=== PATIENT | female | born 2000 | race Caucasian/White ===

== ENCOUNTER 2020-11-25 10:07 | Emergency (ER) | payer BC ==
--- NOTE | 2020-11-25 10:19 | EDM.PDOC ---
ED HPI GENERAL MEDICAL PROBLEM - General Stated Complaint: prior removal of galbladder lots of pain Time Seen by Provider: 11/25/20 10:19 Source of Information: Reports: Patient, RN, RN Notes Reviewed History Limitations: Reports: No Limitations - History of Present Illness INITIAL COMMENTS - FREE TEXT/NARRATIVE: Patient is a 20-year-old female who presents to ER with complaint of right upper quadrant pain. Patient states the pain began yesterday, had some pain throughout the night, and woke up with the pain this morning. States she had this pain in the past as well. Had her gallbladder removed in May of this year. Does not complain of any acid reflux or indigestion. States she feels as though she has had fever and chills, but has not had a fever. Some nausea without vomiting, denies diarrhea. Last bowel movement was yesterday, states was normal for her. Patient states she recently had a IUD placed, so does not think there is chances of . Patient states she did have some white claws last night, wondering if this could be alcohol related. Onset: Gradual Right Upper Abdomen Pain Score (Numeric/FACES): 6 - Related Data Allergies Allergy/AdvReac Type Severity Reaction Status Date / Time latex Allergy Rash Verified 11/25/20 10:16 Home Meds: Home Meds . [No Known Home Meds] 11/25/20 [History] ED ROS GENERAL - Review of Systems Review Of Systems: Comprehensive ROS is negative, except as noted in HPI. ED EXAM, GI/ABD - Physical Exam Exam: See Below Exam Limited By: No Limitations General Appearance: Alert, WD/WN, Mild Distress Eyes: Bilateral: Normal Appearance, EOMI Ears: Normal External Exam, Hearing Grossly Normal Nose: Normal Inspection Throat/Mouth: Normal Inspection, Normal Voice, No Airway Compromise Head: Atraumatic, Normocephalic Neck: Normal Inspection, Supple, Non-Tender, Full Range of Motion Respiratory/Chest: No Respiratory Distress, Lungs Clear, Normal Breath Sounds, No Accessory Muscle Use, Chest Non-Tender Cardiovascular: Normal Peripheral Pulses, Regular Rate, Rhythm, No Edema, No Gallop, No JVD, No Murmur, No Rub GI/Abdominal Exam: Normal Bowel Sounds, Soft, Tender (RUQ) (Female) Exam: Deferred Rectal (Female) Exam: Deferred Back Exam: Normal Inspection, Full Range of Motion, NT Extremities: Normal Inspection Neurological: Alert, Oriented, CN II-XII Intact, Normal Cognition, Normal Gait, Normal Reflexes, No Motor/Sensory Deficits Psychiatric: Normal Affect, Normal Mood Skin Exam: Warm, Dry, Intact, Normal Color, No Rash Lymphatic: No Adenopathy Course - Vital Signs Last Recorded V/S: Last Vital Signs Temp 97.2 F 11/25/20 10:16 Pulse 76 11/25/20 10:16 Resp 18 11/25/20 10:16 BP 119/69 11/25/20 10:16 Pulse Ox 99 11/25/20 10:16 - Orders/Labs/Meds Labs: Laboratory Tests 11/25/20 11/25/20 11/25/20 Range/Units 10:45 10:45 10:45 WBC 13.8 H (5.0-10.0) 10^3/uL RBC 5.20 (4.2-5.4) 10^6/uL Hgb 14.7 (12.0-16.0) g/dL Hct 43.6 (37.0-47.0) % MCV 83.8 (80-100) fL MCH 28.3 (27.0-34.0) pg MCHC 33.7 (33.0-35.0) g/dL Plt Count 300 (150-450) 10^3/uL Neut % (Auto) 83.6 H (42.2-75.2) % Lymph % (Auto) 10.8 L (20.5-50.1) % [place] % (Auto) 5.0 (2-8) % Eos % (Auto) 0.5 L (1.0-3.0) % Baso % (Auto) 0.1 (0.0-1.0) % Sodium 138 (136-145) mmol/L Potassium 3.9 (3.5-5.1) mmol/L Chloride 103 (98-107) mmol/L Carbon Dioxide 26 (21-32) mmol/L Anion Gap 12.9 (7-13) mEq/L BUN 9 (7-18) mg/dL Creatinine 0.67 (0.55-1.02) mg/dL Est Cr Clr Drug Dosing 99.38 mL/min Estimated GFR (MDRD) > 60 BUN/Creatinine Ratio 13.4 (No establ ref range) Glucose 95 (74-99) mg/dL Calcium 8.9 (8.5-10.1) mg/dL Total Bilirubin 0.7 (0.2-1.0) mg/dL AST 54 H (15-37) U/L ALT 34 (14-59) U/L Alkaline Phosphatase 109 (46-116) U/L C-Reactive Protein 1.3 H (0.0-0.9) mg/dL Total Protein 7.6 (6.4-8.2) g/dL Albumin 3.6 (3.4-5.0) g/dL Globulin 4.0 Albumin/Globulin Ratio 0.9 Amylase 39 (25-115) U/L Lipase 63 L (73-393) U/L Urine Color (YELLOW) Urine Appearance (CLEAR) Urine pH (5.0-9.0) Ur Specific [place] (1.005-1.030) Urine Protein (NEGATIVE) Urine Glucose (UA) (NEGATIVE) Urine Ketones (NEGATIVE) Urine Occult Blood (NEGATIVE) Urine Nitrite (NEGATIVE) Urine Bilirubin (NEGATIVE) Urine Urobilinogen (0.2-1.0) mg/dL Ur Leukocyte Esterase (NEGATIVE) Urine HCG, Qual 11/25/20 11/25/20 Range/Units 10:47 10:47 WBC (5.0-10.0) 10^3/uL RBC (4.2-5.4) 10^6/uL Hgb (12.0-16.0) g/dL Hct (37.0-47.0) % MCV (80-100) fL MCH (27.0-34.0) pg MCHC (33.0-35.0) g/dL Plt Count (150-450) 10^3/uL Neut % (Auto) (42.2-75.2) % Lymph % (Auto) (20.5-50.1) % [place] % (Auto) (2-8) % Eos % (Auto) (1.0-3.0) % Baso % (Auto) (0.0-1.0) % Sodium (136-145) mmol/L Potassium (3.5-5.1) mmol/L Chloride (98-107) mmol/L Carbon Dioxide (21-32) mmol/L Anion Gap (7-13) mEq/L BUN (7-18) mg/dL Creatinine (0.55-1.02) mg/dL Est Cr Clr Drug Dosing mL/min Estimated GFR (MDRD) BUN/Creatinine Ratio (No establ ref range) Glucose (74-99) mg/dL Calcium (8.5-10.1) mg/dL Total Bilirubin (0.2-1.0) mg/dL AST (15-37) U/L ALT (14-59) U/L Alkaline Phosphatase (46-116) U/L C-Reactive Protein (0.0-0.9) mg/dL Total Protein (6.4-8.2) g/dL Albumin (3.4-5.0) g/dL Globulin Albumin/Globulin Ratio Amylase (25-115) U/L Lipase (73-393) U/L Urine Color Yellow (YELLOW) Urine Appearance Slightly cloudy (CLEAR) Urine pH 7.0 (5.0-9.0) Ur Specific [place] 1.020 (1.005-1.030) Urine Protein Negative (NEGATIVE) Urine Glucose (UA) Negative (NEGATIVE) Urine Ketones Negative (NEGATIVE) Urine Occult Blood Negative (NEGATIVE) Urine Nitrite Negative (NEGATIVE) Urine Bilirubin Negative (NEGATIVE) Urine Urobilinogen 0.2 (0.2-1.0) mg/dL Ur Leukocyte Esterase Negative (NEGATIVE) Urine HCG, Qual Negative Meds: Medications Discontinued Medications Generic Name Dose Route Start Last Admin Trade Name Freq PRN Reason Stop Dose Admin Al Hydroxide/Mg Hydroxide 30 ml 11/25/20 13:15 11/25/20 13:22 Gi Cocktail PO 11/25/20 13:16 30 ml ONETIME ONE Administration Fentanyl 50 mcg 11/25/20 11:45 11/25/20 11:49 Sublimaze IVPUSH 11/25/20 11:46 50 mcg ONETIME ONE Administration Hydromorphone HCl 0.5 mg 11/25/20 12:41 11/25/20 12:52 Dilaudid IVPUSH 11/25/20 12:42 0.5 mg ONETIME ONE Administration Iopamidol 100 ml 11/25/20 11:37 11/25/20 11:42 Isovue-300 (61%) IVPUSH 11/25/20 11:38 100 ml ONETIME ONE Administration Ondansetron HCl 4 mg 11/25/20 12:51 11/25/20 12:55 Zofran IVPUSH 11/25/20 12:52 4 mg ONETIME ONE Administration Pantoprazole Sodium 40 mg 11/25/20 13:16 11/25/20 13:22 Protonix Iv IVPUSH 11/25/20 13:17 40 mg ONETIME ONE Administration - Radiology Interpretation Free Text/Narrative:: CT of abdomen/pelvis with contrast: PROCEDURE INFORMATION: Exam: CT Abdomen And Pelvis With Contrast Exam date and time: 11/25/2020 12:15 PM Age: 20 years old Clinical indication: Other: Wbc 13,800; Prior surgery; Surgery date: 6+ months; Additional info: Ruq pain, gallbladder out in May 2020 TECHNIQUE: Imaging protocol: Computed tomography of the abdomen and pelvis with intravenous contrast. Radiation optimization: All CT scans at this facility use at least one of these dose optimization techniques: automated exposure control; mA and/or kV adjustment per patient size (includes targeted exams where dose is matched to clinical indication); or iterative reconstruction. Contrast material: [id number]; Contrast volume: 75 ml; Contrast route: INTRAVENOUS (IV); COMPARISON: No relevant prior studies available. FINDINGS: Liver: Small cystic-appearing lesion is present within the right lobe of the liver near the gallbladder fossa. It measures approximately 0.9 x 0.7 cm and likely represents a cyst. Gallbladder and bile ducts: The gallbladder has been removed. There is no enlargement of the common bile ducts. Pancreas: Normal. No ductal dilation. Spleen: Normal. No splenomegaly. Adrenal glands: Normal. No mass. Kidneys and ureters: Simple appearing cyst is present arising from the left kidney. It measures approximately 2.1 x 1.8 cm. No solid lesion, stone or hydronephrosis present. Stomach and bowel: Unremarkable. No obstruction. No mucosal thickening. Appendix: The appendix is well seen and is normal in appearance. Intraperitoneal space: Unremarkable. No free air. No significant fluid collection. Vasculature: Unremarkable. No abdominal aortic aneurysm. Lymph nodes: Unremarkable. No enlarged lymph nodes. Urinary bladder: Unremarkable as visualized. Reproductive: An intrauterine device is present within the uterus. There appears to be a small amount of fluid within the endocervical canal. This could be physiologic. Bones/joints: Unremarkable. No acute fracture. Soft tissues: Unremarkable. IMPRESSION: 1. Etiology for right upper quadrant pain and leukocytosis is not definitively identified. The patient is status post cholecystectomy without recurrent or residual biliary tract obstruction. 2. Intrauterine device within the uterus with small amount of fluid in the endocervical canal. This could be physiologic. 3. Normal appearance of the appendix. COMMENTS: Consistent with the [employer]'s Incidental Findings Committee white paper (J Am Clarita Radiol 2018): Any incidental renal lesion less than 1 cm or classified as too small to characterize, or any incidental cystic renal lesion characterized as simple- appearing, is likely benign. No follow-up imaging is recommended for these lesions per consensus recommendations based on imaging criteria. Thank you for allowing us to participate in the care of your patient. Dictated and Authenticated by: Bertrand Ulloa MD 11/25/2020 12:36 PM Central Time ([place] & [place]) See rad report - Re-Assessments/Exams Free Text/Narrative Re-Assessment/Exam: 11/25/20 13:44 Patient states improvement in pain. States she will avoid drinking weight loss or other alcoholics Seltzers Departure - Departure Time of Disposition: 13:45 Disposition: Home, Self-Care 01 Condition: Good Clinical Impression: Gastroenteritis Abdominal pain Qualifiers: Abdominal location: right upper quadrant Qualified Code(s): R10.11 - Right upper quadrant pain - Discharge Information *PRESCRIPTION DRUG MONITORING PROGRAM REVIEWED*: No *COPY OF PRESCRIPTION DRUG MONITORING REPORT IN PATIENT EDITH: No Instructions: Abdominal Pain, Adult, [id number], Nausea and Vomiting, Adult, [id number] Forms: ED Department Discharge Additional Instructions: Avoid [place] drinks May use over the counter omeprazole for stomach pain Follow up with your primary care facility if no improvement Drink plenty of water [place] diet until pain and nausea resolved Sepsis Event Note (ED) - Focused Exam Vital Signs: Vital Signs Temp Pulse Resp BP Pulse Ox 11/25/20 10:16 97.2 F 76 18 119/69 99
[2020-11-25 11:27] LABS: ANION GAP 12.9 mEq/L (7-13); CHLORIDE,CL 103 mmol/L (98-107); SODIUM,NA 138 mmol/L (136-145)
[2020-11-25] MEDS ORDERED: Iopamidol 612 MG/ML 100 ML Bottle IVPUSH ONE (11:37)
[2020-11-25] MEDS ORDERED: fentaNYL 100 MCG/2 ML SDV IVPUSH ONE (11:45)
--- NOTE | 2020-11-25 12:36 | CT ---
PROCEDURE INFORMATION: Exam: CT Abdomen And Pelvis With Contrast Exam date and time: 11/25/2020 12:15 PM Age: 20 years old Clinical indication: Other: Wbc 13,800; Prior surgery; Surgery date: 6+ months; Additional info: Ruq pain, gallbladder out in May 2020 TECHNIQUE: Imaging protocol: Computed tomography of the abdomen and pelvis with intravenous contrast. Radiation optimization: All CT scans at this facility use at least one of these dose optimization techniques: automated exposure control; mA and/or kV adjustment per patient size (includes targeted exams where dose is matched to clinical indication); or iterative reconstruction. Contrast material: [id number]; Contrast volume: 75 ml; Contrast route: INTRAVENOUS (IV); COMPARISON: No relevant prior studies available. FINDINGS: Liver: Small cystic-appearing lesion is present within the right lobe of the liver near the gallbladder fossa. It measures approximately 0.9 x 0.7 cm and likely represents a cyst. Gallbladder and bile ducts: The gallbladder has been removed. There is no enlargement of the common bile ducts. Pancreas: Normal. No ductal dilation. Spleen: Normal. No splenomegaly. Adrenal glands: Normal. No mass. Kidneys and ureters: Simple appearing cyst is present arising from the left kidney. It measures approximately 2.1 x 1.8 cm. No solid lesion, stone or hydronephrosis present. Stomach and bowel: Unremarkable. No obstruction. No mucosal thickening. Appendix: The appendix is well seen and is normal in appearance. Intraperitoneal space: Unremarkable. No free air. No significant fluid collection. Vasculature: Unremarkable. No abdominal aortic aneurysm. Lymph nodes: Unremarkable. No enlarged lymph nodes. Urinary bladder: Unremarkable as visualized. Reproductive: An intrauterine device is present within the uterus. There appears to be a small amount of fluid within the endocervical canal. This could be physiologic. Bones/joints: Unremarkable. No acute fracture. Soft tissues: Unremarkable. IMPRESSION: 1. Etiology for right upper quadrant pain and leukocytosis is not definitively identified. The patient is status post cholecystectomy without recurrent or residual biliary tract obstruction. 2. Intrauterine device within the uterus with small amount of fluid in the endocervical canal. This could be physiologic. 3. Normal appearance of the appendix. COMMENTS: Consistent with the [employer]'s Incidental Findings Committee white paper (J Am Clarita Radiol 2018): Any incidental renal lesion less than 1 cm or classified as too small to characterize, or any incidental cystic renal lesion characterized as simple-appearing, is likely benign. No follow-up imaging is recommended for these lesions per consensus recommendations based on imaging criteria.
[2020-11-25] MEDS ORDERED: HYDROmorphone 0.5 MG/0.5 ML Syringe IVPUSH ONE (12:41)
[2020-11-25] MEDS ORDERED: Ondansetron 4 MG/2 ML SDV IVPUSH ONE (12:51)
[2020-11-25] MEDS ORDERED: GI Cocktail Oral Solution 30 ML PO ONE (13:15)
[2020-11-25] MEDS ORDERED: Pantoprazole 40 MG Vial IVPUSH ONE (13:16)
== END 2020-11-25 13:53 | disposition home or self-care (01) ==
LOC: DL.ED 10:07
DX: K52.9 Noninfective gastroenteritis and colitis, unspecified (principal); Z91.040 Latex allergy status
CPT/HCPCS: 36415; 74177; 80053; 81003; 81025; 82150; 83690; 85025; 86140; 96374; 96375; 99283; 99284; A9270; C9113; J1170; J2405; J3010; Q9967